=== PATIENT | female | born 1960 | race Caucasian/White ===

== ENCOUNTER 2017-02-14 14:36 | Emergency (ER) | payer OTHER ==
--- NOTE | 2017-02-14 14:40 | ED Physician Documentation ---
Low Back Pain - HISTORIAN Historian: patient - HPI Stated Complaint: chronic back pain Chief Complaint: Low Back Pain/ Injury History: history of chronic pain:, back pain Onset: other (3 years ) Duration: continues in ED Recent Injury: No Context: other (when attempt to ask she states "it hurts bad all the time. I was told I needed surgery 3 years ago and my has had 3 back surgeries and he talked me out of it." She reports seeing Dr Wong for her "regular meds " states that Dr Wong does refill all her meds. At one time she did see a pain management but states he is not taking new patients. she states her PCP ( Dr Wong) is not willing to "deal with my back any longer" ) Where: home Other Injuries: back Severity: moderate Quality: sharp Associated Symptoms: difficulty walking, weakness. denies: incontinence Worsened By:: other (everything ) - ROS CONST: no problems CVS/RESP: none MS/SKIN/LYMPH: none Neuro/Psych: none (HTN, chronic low back pain, anxiety ) - PAST HX Past History: other (PAMUNKEY ) Surgeries/Procedures: other (didnt want to say she was hurting too bad ) Allergies/Adverse Reactions: Allergies Allergy/AdvReac Type Severity Reaction Status Date / Time Sulfa (Sulfonamide Allergy Verified 02/14/17 14:38 Antibiotics) Home Medications: Ambulatory Orders Medication Instructions Recorded Carvedilol [Coreg] 25 mg PO BID 02/14/17 CloNIDine HCL [Catapress] 0.1 mg PO DAILY 02/14/17 Diazepam [Valium] 5 mg PO BID 02/14/17 Estradiol [Estrace] 1 mg PO DAILY 02/14/17 Lisinopril [Prinivil] 30 mg PO DAILY 02/14/17 Tizanidine HCl [Zanaflex] 4 mg PO 02/14/17 Tramadol HCl [Ultram] 100 mg PO Q4 02/14/17 - SOCIAL HX Smoking History: cigarettes Alcohol Use: none Drug Use: none - FAMILY HX Family History: none - VITAL SIGNS Vital Signs: Vital Signs Temp Pulse Resp BP Pulse Ox 97 F L 88 22 220/103 98 02/14/17 14:40 02/14/17 14:40 02/14/17 14:40 02/14/17 14:40 02/14/17 14:40 - REVIEWED ASSESSMENTS Nursing Assessment Reviewed: Yes Vitals Reviewed: Yes ED Results Lab/Radiology - Orders Orders: ED Orders Category Date Time Status LUMBAR SPINE XR 2 OR 3 VIEWS [L SPINE 2 OR 3 VIEWS] [ Exams 02/14/17 Ordered RAD] Stat Ketorolac Tromethamine [Toradol] Med 02/14/17 14:52 Discontinued 60 mg IM NOW ONE methylPREDNISolone ACETATE [Depo-Medrol] Med 02/14/17 14:53 Discontinued 80 mg IM NOW ONE Low Back Pain/Injury - Physical Exam General Appearance: moderate distress, anxious (crying and rolling in bed ) EENT: eye inspection normal Neck: non-tender Resp/CVS: chest non-tender, breath sounds nml, heart sounds nml, no resp. distress, lungs clear, reg. rate & rhythm Abdomen: non-tender, no organomegaly Back: other (she screams out with any movement or attempt at palpation - she did walk to the rest room to urinate with no difficulty ) Neuro/Psych: oriented x3, motor nml, depressed mood/affect Skin: warm/dry Extremities: other (she would not allow movement of lower extremities - she would push and had equal sensation ) Discharge Clincal Impression: Low back pain Qualifiers: Chronicity: chronic Back pain laterality: unspecified Sciatica presence: with sciatica Sciatica laterality: bilateral sciatica Qualified Code(s): M54.41 - Lumbago with sciatica, right side; M54.42 - Lumbago with sciatica, left side; M54.42 - Lumbago with sciatica, left side; G89.29 - Other chronic pain; G89.29 - Other chronic pain Referrals: Primary Doctor,No [Primary Care Provider] - 2 Days Condition: Stable Disposition: 07 AGAINST MEDICAL ADVICE Decision to Admit: NO Date of Decison to Admit: 02/14/17 Decision Time: 15:20
[2017-02-14 14:46] VITALS: BP 220/103
[2017-02-14] MEDS: KETOROLAC TROMETHAMINE 60 MG/2 ML VIAL IM ONE (15:02)
[2017-02-14] MEDS: methylPREDNISolone ACETATE 80 MG/ML VIAL IM ONE (15:02)
== END 2017-02-14 15:00 | disposition left against medical advice (07) ==
LOC: ED 14:36
DX: M54.41 Lumbago with sciatica, right side (principal); M54.42 Lumbago with sciatica, left side; G89.29 Other chronic pain; Z53.21 Procedure and treatment not carried out due to patient leaving prior to being seen by health care provider
CPT/HCPCS: 99283